=== PATIENT | female | born 1985 | race Caucasian/White ===

== ENCOUNTER 2016-11-07 20:24 | Emergency (ER) | payer BC, OTHER ==
[~2016-11-07] VITALS: Ht 172.7 cm; Wt 77.8 kg
[~2016-11-07 20:24] MED LIST: OXYC-360 PO; Z.0.NO CURRENT MEDS
[2016-11-07 20:34] VITALS: BP 123/84; PULSE 57; RESP 16; TEMP 99.9; O2SAT 99
--- NOTE | 2016-11-07 21:31 | PD ---
HPI Chief Complaint: Injury Time Seen by Provider: 21:28 Travel History International Travel<30 days: No Contact w/Intl Traveler<30days: No Traveled to known affect area: No History of Present Illness HPI Patient is a 30-year-old female presenting with right foot and great toe pain. 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 She has been able to bear weight but is painful to do so. She denies any weakness or paresthesias. She denies pain in her ankle. She denies current secondary to being on her menstrual cycles. PFSH Past Medical History ?: Not LMP: TODAY Past Surgical History Pacemaker: No Social History Tobacco Use: No Allergies-Medications (Allergen,Severity, Reaction): Coded Allergies: Amoxicillin (Verified Allergy, Unknown, HIVES, 02/13/09) Sulfa (Verified Allergy, Unknown, RASH, 02/13/09) Reported Meds & Prescriptions Reported Meds & Active Scripts Active Naproxen 500 Mg Tab 500 Mg PO BID Review of Systems Musculoskeletal: Positive: Other (see the history of present illness) Neurologic: No: Weakness, Focal Abnormalities, Paresthesia, Sensory Disturbance Physical Exam Narrative GENERAL: Well-developed and well-nourished adult female in no acute distress. SKIN: Warm and dry. Good turgor without tenting. HEAD: Normocephalic and atraumatic. CARDIOVASCULAR: Regular rate and rhythm without murmurs, rubs, clicks or gallops. Dorsalis pedis and posterior tibial pulses 2+ bilaterally. Capillary refill less than 2 seconds distal tip of all toes of right foot. RESPIRATORY: Clear to auscultation bilaterally with symmetrical rise and fall, no distress or use of accessory muscles. MUSCULOSKELETAL: Patient's pain palpation of the mid to distal first metatarsal , great toe and proximal second toe of the right foot. No edema to the foot. There is some mild edema to the great toe and very minimal subungual hematoma. No deformities. Patient freely moving all four extremities spontaneously. Extremities without clubbing or cyanosis. No obvious deformities. NEUROLOGIC: CN II-XII grossly intact. Awake and alert. Motor grossly within normal limits. Sensation intact to the distal tip of all 5 toes of right foot. Normal speech. PSYCHIATRIC: Appropriate mood and affect; insight and judgment normal. Data Data Last Documented VS Vital Signs Date Time Temp Pulse Resp B/P Pulse Ox O2 Delivery O2 Flow Rate FiO2 11/07/16 20:34 99.9 57 16 123/84 99 Room Air Orders Foot, Complete ([id number]) (11/07/16 21:27) Ice/Cold Pack (11/07/16 21:27) Splint Or Brace Apply/Monitor (11/07/16 22:36) MDM Medical Decision Making Medical Screen Exam Complete: Yes Emergency Medical Condition: Yes Interpretation(s) Last 24 hours Impressions Foot X-Ray 11/07/162126 Signed Impressions: Service Date/Time: Monday, November 07, 2016 21:32 - CONCLUSION: 1. No acute findings Mo Chapin MD Differential Diagnosis Foot contusion versus foot fracture versus toe fracture versus subungual hematoma Narrative Course Patient's 30-year-old female presenting shortly after dropping several plates on the top of her right foot while at work. She has some ecchymosis and mild edema to the right great toe and tenderness over the first and second metatarsal. She is neurovascularly intact. Patient was given I ordered x-ray which showed no fracture or subluxation. Patient is given prescription for naproxen and an Bautista wrap.See discharge paperwork for further instructions. The plan was discussed with the patient who acknowledged their understanding and agreement. Reinforced the follow-up with primary care is critically important. Patient instructed on emergent conditions that should prompt return to ED. Diagnosis Primary Impression: Contusion of right foot Qualified Code: S90.31XA - Contusion of right foot, initial encounter Patient Instructions: Contusion in Adults (ED), General Instructions Additional Instructions: Take medications as prescribed Apply ice every 1 to 2 hours as needed for pain Avoid maneuvers that aggravate pain Keep BAUTISTA bandage on while being active or using extremity Elevate when at rest Return to the ED for any acute worsening of symptoms Med/Other Pt SpecificInfo: Prescription(s) given Scripts Naproxen 500 Mg Uop907 Mg PO BID #10 TAB Prov:Cuco Vazquez MD 11/07/16 Disposition: 01 DISCHARGE HOME Condition: Stable Campos Valdivia III Nov 07, 2016 21:31
--- NOTE | 2016-11-07 22:25 | RADHPO ---
EXAM DATE/TIME: 11/07/2016 21:32 [facility] COMPARISON: No previous studies available for comparison. INDICATIONS : Right foot pain, trauma, droppped dishes on foot MEDICAL HISTORY : None. SURGICAL HISTORY : None. ENCOUNTER: Initial ACUITY: 1 day PAIN SCORE: 7/10 LOCATION: Right foot FINDINGS: Three view examination of the right foot demonstrates no soft tissue swelling, dislocation, or fractu re. The tarsal bones appear intact. The interphalangeal and metatarsophalangeal joints are intact. The calcaneus is intact. Bony mineralization is normal. CONCLUSION: 1. No acute findings Mo Chapin MD on November 07, 2016 at 22:23 Board Certified Radiologist. This report was verified electronically.
[2016-11-07] MEDS ORDERED: NAPR500T PO (22:35)
== END 2016-11-07 22:47 | disposition home or self-care (01) ==
LOC: PHEFT 20:24
DX: S90.31XA Contusion of right foot, initial encounter (principal); W20.8XXA Other cause of strike by thrown, projected or falling object, initial encounter; Y92.511 Restaurant or cafe as the place of occurrence of the external cause; Y99.0 Civilian activity done for income or pay
CPT/HCPCS: 73630; 99283